=== PATIENT | male | born 1985 | race Caucasian/White ===

== ENCOUNTER → 2025-07-13 13:41 | Outpatient (REF) | payer OTHER, SELFPAY | LOC: HWRCS 13:41 | DX: R00.2 Palpitations (principal) | CPT/HCPCS: 93306 ==

== ENCOUNTER → 2025-07-16 12:29 | Outpatient (REF) | payer OTHER, SELFPAY | LOC: RCS 12:29 | DX: R00.2 Palpitations (principal) | CPT/HCPCS: 93017 ==